=== PATIENT | male | born 1935 | race Caucasian/White ===

== ENCOUNTER 2022-06-05 09:08 | Outpatient (CLI) | payer MEDICARE | END 2022-06-05 09:09 | disposition home or self-care (01) | LOC: BICULT 09:08 | PROVIDERS: ATTEND Internal Medicine Nephrology | DX: I12.9 Hypertensive chronic kidney disease with stage 1 through stage 4 chronic kidney disease, or unspecified chronic kidney disease (principal); N18.30 Chronic kidney disease, stage 3 unspecified; N40.0 Benign prostatic hyperplasia without lower urinary tract symptoms | CPT/HCPCS: 76770; 93975 ==

== ENCOUNTER 2022-10-25 09:08 | Emergency (ER) | payer MEDICARE ==
[2022-10-25] MEDS ORDERED: Fluorescein Opthalmic Strip ONE (09:47)
[2022-10-25] MEDS ORDERED: Proparacaine 0.5% Opth 15 ML BOT ONE (09:47)
== END 2022-10-25 11:44 | disposition home or self-care (01) ==
LOC: ERS 09:08
DX: H11.32 Conjunctival hemorrhage, left eye (principal)
CPT/HCPCS: 99282

== ENCOUNTER 2023-01-20 10:35 | Outpatient (CLI) | payer MEDICARE | END 2023-01-20 10:36 | disposition home or self-care (01) | LOC: BICCT 10:35 → SCSCT 10:36 | PROVIDERS: ATTEND Neurological Surgery | DX: R53.1 Weakness (principal) | CPT/HCPCS: 70450 ==

== ENCOUNTER 2023-07-01 12:24 | Emergency (ER) | payer OTHER, MEDICARE ==
[2023-07-01] MEDS ORDERED: Bacitracin 1 PK ONE (13:58)
== END 2023-07-01 14:56 | disposition home or self-care (01) ==
LOC: ERS 12:24
DX: S62.305A Unspecified fracture of fourth metacarpal bone, left hand, initial encounter for closed fracture (principal); E11.9 Type 2 diabetes mellitus without complications; W01.0XXA Fall on same level from slipping, tripping and stumbling without subsequent striking against object, initial encounter
CPT/HCPCS: 29125; 70450; 70486; 71046; 72125; 72170

== ENCOUNTER 2023-07-15 09:30 | Outpatient (CLI) | payer MEDICARE | END 2023-07-15 09:31 | disposition home or self-care (01) | LOC: BICRAD 09:30 | PROVIDERS: ATTEND Family Medicine | DX: M25.531 Pain in right wrist (principal); G56.01 Carpal tunnel syndrome, right upper limb ==

== ENCOUNTER → 2023-11-12 | Day surgery (SDC) | payer MEDICARE ==
[2023-11-10 13:55] VITALS: BMI 38.7
[~2023-11-12] MED LIST: Ketamine In 0.9 % NaCl 50 MG/5 ML SYRINGE ONE
== END ==
LOC: SDC 06:39
PROVIDERS: ATTEND Internal Medicine Cardiovascular Disease
PROC: 5A2204Z Restoration of Cardiac Rhythm, Single (ICD-10-PCS; principal; 2023-11-12)
PROC: B246ZZ4 Ultrasonography of Right and Left Heart, Transesophageal (ICD-10-PCS; 2023-11-12)
DX: I48.0 Paroxysmal atrial fibrillation (principal); I08.3 Combined rheumatic disorders of mitral, aortic and tricuspid valves; E78.5 Hyperlipidemia, unspecified; E11.9 Type 2 diabetes mellitus without complications; Z96.653 Presence of artificial knee joint, bilateral; Z90.49 Acquired absence of other specified parts of digestive tract; Z96.643 Presence of artificial hip joint, bilateral; Z98.890 Other specified postprocedural states; Z95.0 Presence of cardiac pacemaker; Z79.01 Long term (current) use of anticoagulants; Z79.899 Other long term (current) drug therapy
CPT/HCPCS: 92960; 93005; 93010; 93312; J3490